=== PATIENT | female | born 1985 | race Caucasian/White ===

== ENCOUNTER → 2024-01-07 | Outpatient (CLI) | payer SELFPAY ==
--- NOTE | 2024-01-07 09:16 | US_ITS ---
STUDY: ULTRASOUND BREAST - RIGHT REASON FOR EXAM: Female, 38 years old. Abnormal mammogram. TECHNIQUE: Axial and longitudinal images of the RIGHT breast were performed with a high resolution ultrasound transducer. # OF IMAGES: 20 COMPARISON: Comparison is made with prior study dated December 22, 2023. FINDINGS: RIGHT Breast: The lateral aspect of the right breast was examined with ultrasound. There is a 4 mm x 8 mm x 4 mm septated cyst at the 9:00 position of the breast and 5 cm from the nipple. US/Breast Limited Unilateral IMPRESSION: 4 mm x 8 mm x 4 mm septated cyst at the 9:00 position of the breast at 5 cm from the nipple. A repeat sonogram in 3 months is recommended for further evaluation. ASSESSMENT CATEGORY: BIRADS Category 3: Probably Benign - Short-Interval Follow-up Suggested. A letter regarding these results will be sent to the patient by the facility within 30 days. Electronically Signed: Roberto Rivas MD at 11:59 EST ,
== END | disposition home or self-care (01) ==
PROVIDERS: PCP Family Medicine; Referring Provider Nurse Practitioner; Visit Provider Nurse Practitioner
DX: R92.8 Other abnormal and inconclusive findings on diagnostic imaging of breast (principal)
CPT/HCPCS: 76642

== ENCOUNTER → 2024-10-07 | Outpatient (CLI) | payer SELFPAY ==
--- NOTE | 2024-10-07 08:05 | US_ITS ---
PROCEDURE: BREAST LIMITED UNILATERAL 10/07/2024 REASON FOR EXAM: F, Age 39 y/o , FOLLOW UP COMPARISON: Prior study dated January 07, 2024. . TECHNIQUE: BREAST LIMITED UNILATERAL FINDINGS: Once again, there is a 5 mm x 8 mm x 4 mm well-defined cyst with a septation at the 9 o'clock position of the breast at 5 cm from the nipple. This is unchanged. I would suggest aspiration for further analysis. US/Breast Limited Unilateral IMPRESSION: Stable appearance of the cyst at the 9 o'clock position of the breast at 5 cm f rom the nipple. Cyst aspiration recommended. BI-RADS 4: SUSPICIOUS RECOMMENDATION: Biopsy Recommended Reading Location: [facility]
--- OUTSIDE RECORDS SUMMARY | 2024-10-07 08:08 | XMS RPT_ITS | CCD ---
Author Organization [facility] ion Partnership [facility] Care Team Providers Care Diesel Automotive Technician Name Role Phone Unavailable Primary Care Provider Unavailabl e MAMMOGRAPHY-S[facility], SELF-REQUESTED Referring Unavailable KYRIE SANTOYO Attending Unavailable Mindi INTERNAL AFFAIRS COMMANDER, Kyrie Referring Unavailable Mindi INTERNAL AFFAIRS COMMANDER, Kyrie Attending Unavailable Yo Angel Primary Care Unavailable Yo Angel Primary Care Unavailable Mindi INTERNAL AFFAIRS COMMANDER, Kyrie Referring Unavailable Mindi INTERNAL AFFAIRS COMMANDER, Kyrie Attending Unavailable Problems Active Problems Problem Classification Problem Date Documented Da te Episodic/Chronic Nonmalignant breast conditions (1 source) Unspecified lump in unspecified breast; Translations: [Unspecified lump in unspecified breast] Onset: 07-02-2024 Episodic Past or Other Problems Problem Classification Problem Date Documented Da te Episodic/Chronic Other screening for suspected conditions (not mental disorders or infectious disease) (4 sources) Patient encounter status; Translations: [Encounter for screening mammogram for malignant neoplasm of breast] Onset: 12-22-2023 11-21-2023 Episodic Results Test Name Value Interpretation Reference Range Facil ity Breast Limited Unilateralon 01-07-2024 Breast Limited Unilateral [facility] [address] [place] [id number] Breast Limited Unilateral MR#: [id number] Acct: [id number] Name: CAROLIN HIDALGO Rep #: [id number] : 1985 F 38 From: Roberto mendoza MD PCP: Dr. Yo Angel, DO Status: REG CLI Study: Breast Limited Unilateral Date of Exam: Exam# [id number] Ordering Dr: Kyrie Santoyo INTERNAL AFFAIRS COMMANDER N P-C [id number] STUDY: ULTRASOUND BREAST - RIGHT REASON FOR EXAM: Female, 38 years old. Abnormal mammogram. TECHNIQUE: Axial and longitudinal images of the RIGHT breast were performed with a high resolution ultrasound transducer. # OF IMAGES: 20 COMPARISON: Comparison is made with prior study dated December 22, 2023. FINDINGS: RIGHT Breast: The lateral aspect of the right breast was examined with ultrasound. There is a 4 mm x 8 mm x 4 mm septated cyst at the 9:00 position of the breast and 5 cm from the nipple. US/Breast Limited Unilateral IMPRESSION: 4 mm x 8 mm x 4 mm septated cyst at the 9:00 position of the breast at 5 cm from the nipple. A repeat sonogram in 3 months is recommended for further evaluation. ASSESSMENT CATEGORY: BIRADS Category 3: Probably Benign - Short-Interval Follow-up Suggested. A letter regarding these results will be sent to the patient by the facility within 30 days. Electronically Signed: Roberto Rivas MD at 11:59 EST , CC: WES Santoyo; Dr. Yo Angel, Patrol Agent: Signed Normal [facility] MAMMO SCREENING WITH FIGUEROA BI LATERALon 12-23-2023 MAMMO SCREENING WITH FIGUEROA BILATERAL EXAM: MAMMO SCREENING WITH FIGUEROA BILATERAL, 12/22/2023 15:50 PM CLINICAL INDICATIONS: Screening, baseline. COMPARISON: No prior studies available for comparison. TECHNIQUE: 3-D MLO and CC digital tomosynthesis images were obtained of the bilateral breasts. Synthetic 2-D images were generated from the tomosynthesis data. Computer aided detection was utilized. FINDINGS: Breast Density: The breasts have scattered areas of fibroglandular density. In the outer right breast, anterior depth approximately 5 cm from the nipple approximately along the 9-10 o'clock axis, there is a indeterminate 0.5 cm mass. There are no additional suspicious masses, calcifications, or architectural distortions. IMPRESSION: Indeterminate mass in the right breast. Recommend further evaluation with handheld ultrasound of the right breast. No mammographic evidence of malignancy in the left breast. BI-RADS: 0: Incomplete: Need additional imaging evaluation Recommendation: Additional imaging evaluation. Recommendation Laterality: Right The current National Comprehensive Cancer Network and [employer] guidelines recommend women undergo a screening mammogram every year over the age of 40 and continue mammographic screening as long as they are in good health. Screening mammography under age 40 may occur for women who are at increased risk for breast cancer. [facility] [place] [employer] [facility], [address] [facility] [facility] [address], I personally viewed and interpreted these images and I have reviewed and approved this report. Table formatting from the original result was not included. MAMMO STANDARD RISK SA SITE BEGIN [employer] [facility] [address] [facility] [address] SA SITE END [facility] Encounters Encounter Date Encounter Type Care Provider Facility Start: 07-06-2024 ambulatory Yo Angel Facility:[facility] Start: 01-07-2024 End: 01-07-2024 ambulatory Kyrie Santoyo NP Facility:[facility] Start: 12-22-2023 ambulatory SELF-REQUESTED MAMMOGRAPHY-[facility] Facility:[facility] Start: 12-22-2023 End: 12-22-2023 Subsequent hospital visit by physician Kyrie Santoyo BIOMEDICAL REPAIR TECHNICIAN Work Phone: [facility] Comment on above: Arrived Plan of Treatment Date Care Activity Detail Author Start: 11-21-2023 End: 11-20-2024 MG Breast - bilateral Screening MAMMO SCREENING WITH FIGUEROA BILATERAL Imaging Routine Visit for screening mammogram Expected: 11/21/2023, Expires: 11/20/2024 [facility] Work Phone: Comment on above: Expected: 11/21/2023 , Expires: 11/20/2024 Start: 10-19-2023 COVID-19 VACCINE ( season) COVID-19 VACCINE ( season) [facility] Start: 10-19-2023 Influenza vaccination INFLUENZA VACC INE (#1) [facility] Start: 2023 Lipid panel LIPID SCREENING [facility] Start: 2023 Screening for malign ant neoplasm of breast MAMMOGRAM SCREENING DISCUSSION [facility] Start: 01-09-2004 Screening for malign ant neoplasm of cervix CERVICAL CANCER SCREENING DISCUSSION [facility] Start: 2002 Hepatitis B vaccination HEP B VACCINE (1 of 3 - 19+ 3-dose series) [facility] Start: 2002 Third diphtheria, tetanus and acellular pertussis (DTaP) vaccination TDAP (ADULT) [facility] Start: 1998 HIV screening HIV SCREENING DISCUSSION [facility] Start: 1983 Hepatitis C screening HEPATITI S C VIRUS SCREENING [facility] Start: 1985 Tetanus vaccination TETANUS [facility] End: 12-22-2023 MG Breast - bilateral Screening [facility] Comment on above: 1 Occurrences starti ng 12/22/2023 until 12/22/2023 Payers Date Payer Category Payer Self-pay 2024 Unknown [id number] Unknown [id number] Unknown [id number] Social History Date Type Detail Facility Tobacco smoking stat [facility] Tobacco smoking consumption unknown [facility] Start: 1985 Sex assigned at Not on file [facility] Gender identity Not on file [facility] History of Present illness Narrative 12-22-2023 Shakira Braden - 12/22/2023 11:30 AM EST Note Date & Type Note Facility 12-22-2023 History of Presen t illness Narrative 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 Patient declined. documented in this encounter [facility] Evaluation note Note Date & Type Note Facility Evaluation note Diagnosis Visit for screening mammogram Other screening mammogram documented in this encounter [facility] Reason for Referral Specialty Diagnoses / Procedures Referred By Lucio baiely Referred To Contact Diagnoses Visit for screening mammogram Procedures MAMMO SCREENING WITH FIGUEROA BILATERAL Mammography-Sundar Self-Requested [address] [place] [address] Referral ID Status Reason Start Date Expiration Date V isits Requested Visits Authorized [id number] New Request 11/21/2023 12/15/2024 1 1 Summary Purpose Family History No Family History Records FoundNo Family History Records Found Advance Directives No Advanced Directives Records FoundNo Advanced Directives Records Found Additional Source Comments Reason for Visit (unrecogniz ed section and content) Specialty Diagnoses / Procedures Referred By Lucio bailey Referred To Contact Diagnoses Visit for screening mammogram Procedures MAMMO SCREENING WITH FIGUEROA BILATERAL [facility], Self-Requested [address] [place] [address] Referral ID Status Reason Start Date Expiration Date V isits Requested Visits Authorized [id number] New Request 11/21/2023 12/15/2024 1 1 INFORMATION SOURCE (unrecogn ized section and content) DATE CREATED AUTHOR 01/03/2024 [facility] DATE CREATED AUTHOR AUTHOR'S ORGANIZ ATION 07/04/2024 [facility] FOR RECORDS PERTAINING TO PATIENTS WHO ARE OR HAVE BEEN ENROLLED IN A CHEMICAL DEPENDENCY/SUBSTANCEABUSE PROGRAM, SOME INFORMATION MAY BE OMITTED. This clinical summary was aggregated from multiple sources. Caution should be exercised in using it in the provision of clinical care. This summary normalizes information from multiple sources, and as a consequence, information in this document may materially change the coding, format and clinical context of patient data. In addition, data may be omitted in some cases. CLINICAL DECISIONS SHOULD BE BASED ON THE PRIMARY CLINICAL RECORDS. [facility]. provides no warranty or guarantee of the accuracy or completeness of information in this document.
== END | disposition home or self-care (01) ==
PROVIDERS: PCP Family Medicine; Referring Provider Nurse Practitioner; Visit Provider Nurse Practitioner
DX: N63.10 Unspecified lump in the right breast, unspecified quadrant (principal)
CPT/HCPCS: 76642